=== PATIENT | female | born 1965 | race Caucasian/White ===

== ENCOUNTER 2018-01-14 17:46 | Inpatient (IN) | payer BC ==
[~2018-01-14] VITALS: Ht 160 cm; Wt 59.1 kg
[2018-01-14 18:55] LABS: HEMATOCRIT 39.4 % (36.0-46.0); HEMOGLOBIN 13.8 G/DL (11.9-15.5); MCH 33.4 PG (29.0-34.0); MCV 95.4 FL (83-99); PLATELET COUNT 297 K/uL (156-360); RBC DIS.WIDTH-CV 12.4 % (11.8-14.6); RBC DIS.WIDTH-SD 43.2 % (39-53); RED BLOOD COUNT 4.13 M/uL (3.80-5.20); WHITE BLOOD COUNT 10.2 K/uL (4.1-10.2)
[2018-01-14 19:07] LABS: ALBUMIN 4.6 g/dL (3.2-4.8); CHLORIDE 103 mEq/L (99-109); POTASSIUM 4.7 mEq/L (3.7-5.4); SODIUM 139 mEq/L (136-147)
[2018-01-14 19:09] LABS: GLUCOSE 134 mg/dL (70-99); TOTAL PROTEIN 7.9 g/dL (6.4-8.3)
[2018-01-14 19:11] LABS: TOTAL BILIRUBIN 0.3 mg/dL (0.0-1.0)
[2018-01-14 19:13] LABS: ALKALINE PHOSPHATASE 90 IU/L (3-129); CREATININE 0.7 mg/dL (0.6-1.3); GFR ESTIMATE (CALCULATED) > 59 mL/min/
[2018-01-14 19:14] LABS: UREA NITROGEN (BUN) 18 mg/dL (9-23)
[2018-01-14 19:15] LABS: AST (GOT) 17 IU/L (2-34)
[2018-01-14 19:16] LABS: ALT (GPT) 21 IU/L (3-49); LIPASE 11 U/L (1.0-51.0)
[2018-01-14 19:24] LABS: QUANTITATIVE HCG < 4.0 MIU/ML
[2018-01-14 19:42] LABS: TROP-I INTERPRETATION NEGATIVE; TROPONIN-I < 0.01 ng/mL (0.0-0.30)
[2018-01-14 21:27] LABS: APPEARANCE CLEAR ((CLEAR)); BILIRUBIN NEGATIVE; BLOOD SMALL; COLOR COLORLESS ((YELLOW)); GLUCOSE (STRIP) NEGATIVE; KETONES 5; LEUKOCYTES NEGATIVE; NITRITE NEGATIVE; PROTEIN (STRIP) NEGATIVE; SPECIFIC GRAVITY 1.032 (1.000-1.030); UROBILINOGEN 0.2 MG/DL (0.2-1.0)
[2018-01-14 21:41] LABS: BACTERIA NONE SEEN /HPF; EPITHELIAL CELLS RARE /HPF; MUCUS TRACE /LPF; RED BLOOD CELLS 0-5 /HPF (0-5); UCUL ADDED? NO; WHITE BLOOD CELLS 0-5 /HPF (0-5)
[2018-01-15 02:27] LABS: D-DIMER ELISA < 150.00 ng/mLDDU (<230)
[2018-01-15 02:40] LABS: TROP-I INTERPRETATION NEGATIVE; TROPONIN-I < 0.01 ng/mL (0.0-0.30)
[2018-01-15 03:21] LABS: MAGNESIUM 1.8 mg/dl (1.3-2.7)
[2018-01-15 04:47] VITALS: BP 127/72
[2018-01-15 07:52] VITALS: BP 130/74
[2018-01-15 07:52] LABS: THYROTROPIN (TSH) 0.39 MIU/L (0.4-5.5)
[2018-01-15 08:44] LABS: TROP-I INTERPRETATION NEGATIVE; TROPONIN-I < 0.01 ng/mL (0.0-0.30)
[2018-01-15 15:12] VITALS: BP 154/82
[2018-01-15 20:01] VITALS: BP 161/81
[2018-01-15 22:31] VITALS: BP 166/82
[2018-01-16 04:54] VITALS: BP 159/70
[2018-01-16 07:51] VITALS: BP 141/78
[2018-01-16 15:17] VITALS: BP 138/86
[2018-01-16 19:54] VITALS: BP 129/88
[2018-01-16 22:58] VITALS: BP 147/88
[2018-01-17 04:29] VITALS: BP 153/82
[2018-01-17 06:52] VITALS: BP 133/71
[2018-01-17 10:37] LABS: CHLORIDE 102 MEQ/L (99-109); CREATININE 0.6 MG/DL (0.6-1.3); GFR ESTIMATE (CALCULATED) > 59 mL/min/; GLUCOSE 104 mg/dL (70-99); SODIUM 138 MEQ/L (136-147); UREA NITROGEN (BUN) 11 mg/dL (9-23)
[2018-01-17 10:43] LABS: POTASSIUM 3.3 MEQ/L (3.7-5.4)
[2018-01-17 10:53] VITALS: BP 124/82
[2018-01-17 11:14] LABS: BASOPHIL (%) 0.2 % (0-1); EOSINOPHIL (%) 0 % (0-5); HEMOGLOBIN 13.5 G/DL (11.9-15.5); IMMATURE GRANULOCYTE (%) 0.4 % (0.0-0.7); LYMPHOCYTE (%) 22.3 % (15-42); LYMPHOCYTE COUNT 2.2 K/uL (1.0-2.8); MCH 32.5 PG (29.0-34.0); MCHC 33.8 G/DL (30.0-36.0); MCV 96.4 FL (83-99); MONOCYTE (%) 7.4 % (3-12); MONOCYTE COUNT 0.7 K/uL (0-0.8); NEUTROPHIL (%) 69.7 % (45-76); PLATELET COUNT 320 K/uL (156-360); RBC DIS.WIDTH-CV 12.7 % (11.8-14.6); RBC DIS.WIDTH-SD 45.6 % (39-53); RED BLOOD COUNT 4.15 M/uL (3.80-5.20)
[2018-01-17] MEDS ORDERED: METOPROLOL SUCC25 MG PO (12:06)
[2018-01-17] MEDS ORDERED: SUCRALFATE1 GM PO (12:06)
[2018-01-17] MEDS ORDERED: DOCUSATE SODIU100 MG PO (12:06)
[2018-01-17] MEDS ORDERED: PANTOPRAZOLE SO40 MG PO (12:07)
[2018-01-17] MEDS ORDERED: ZOFRAN ODT4 MG PO (12:16)
== END 2018-01-17 14:09 | disposition home or self-care (01) | DRG 310 ==
LOC: EME 17:46 → EXP 17:46 → 4EAST 01-15 00:24 → EDOF 01-15 00:24 → ENRESERV 01-15 00:26 → 4EAST 01-15 04:02 → ENPENDDIS 01-17 → 4EAST 01-17 14:09
PROVIDERS: Hospitalist; Internal Medicine; Physician Assistant Medical
DX: I48.0 Paroxysmal atrial fibrillation (principal); R10.13 Epigastric pain; R11.2 Nausea with vomiting, unspecified; E86.0 Dehydration; K59.00 Constipation, unspecified; K76.89 Other specified diseases of liver; N28.1 Cyst of kidney, acquired; R94.6 Abnormal results of thyroid function studies; Z87.891 Personal history of nicotine dependence; Z90.49 Acquired absence of other specified parts of digestive tract
CPT/HCPCS: 74177; 80048; 80053; 81003; 83690; 83735; 84443; 84484; 84702; 85025; 85027; 85379; 93005; 93306; 99281; 99285; C9113; J2405; J2765; J3010; J7030